=== PATIENT | male | born 1940 | race Two or more races ===

== ENCOUNTER 2017-03-03 10:00 | Emergency (ER) | payer OTHER ==
[2017-03-03 10:05] VITALS: BP 143/84; BMI 24.3
--- NOTE | 2017-03-03 10:29 | DR.GENAD ---
HPI - PCP Primary Care Physician: DAISY - HPI Comment HPI Comment: WORSE TODAY. NO FEVER. - Complaint/Symptoms Chief Complaint Doctors Comments: COUGH, COLD SORE THROAT ONGESTION FOR ONE WEEK. Chief Complaint:: PT C/O C/C/C, HEADACHE, SORE THROAT AND GAS PAIN. PT STATES HE HAS BEEN HAVING THESE SX APPROX 4 DAYS. PT HAS BEEN TAKING OTC MEDS - Nurses notes reviewed Nurses Notes Review: Yes - Source History Provided: Patient - Mode of Arrival Mode of Arrival: Ambulatory - Timing Onset of Chief Complaint: 02/27/17 - Duration Duration: Minutes, Days - Severity Severity: Moderate PMH - PMH Past Medical History: Yes Past Medical History: Diabetes, GERD, Hypertension Past Surgical History: Yes Surgical History: Ortho Surgery - Family History History of Family Medical Conditions: No - Social History Does any household member use tobacco: No Alcohol Use: None Do you use any recreational Drugs:: No Lives With: Family Lives Where: Home - infectious screening In the last 2 months have you had wt loss of >10#?: NO Have you had fever, night sweats or hemotysis?: No Have you traveled outside the country in the last 6 months?: No Isolation: Standard ROS - Review of Systems Constitutional: No Symptoms Reported Eyes: No Symptoms Reported ENTM: Nose Discharge, Nose Congestion, Throat Pain Respiratoy: Short of Breath, Wheezing Cardiovascular: Chest Pain Genitourinary: No Symptoms Reported Neurological: No Symptoms Reported Musculoskeletal: No Symptoms Reported Integumentary: No Symptoms Reported Hematologic/Lymphatic: No Symptoms Reported Endocrine: No Symptoms Reported All Other Systems: Reviewed and Negative PE - Vital Signs Vitals: Temperature 97.2 F Pulse Rate 63 Respiratory Rate 18 Blood Pressure 143/84 O2 Sat by Pulse Oximetry 97 - General Limitations: No Limitations General Appearance: Alert - Head Head Exam: Normal Inspection - Eyes Eye exam: Normal Appearance - ENT ENT Exam: Normal External Ear Exam. negative: Normal Oropharynx External Ear Exam: Normal External Inspection. negative: Mastoid Tenderness, Pain with Movement TM/Canal Exam: Bilateral Erythema Nose Exam: Normal Nose Exam, Sinus Tenderness Mouth Exam: negative: Lip Swelling, Tongue Elevation Throat Exam: Tonsillar Erythema, Tonsillomegaly - Neck Neck Exam: Trachea Midline - Chest Chest Inspection: Normal Inspection - Respiratory Respiratory Exam: Chest Wall Tenderness, Respiratory Distress Respiratory Exam: Upper Rhonchi, Lower Rhonchi MDM - Additional Information Additional Information Obtained From: Family - Differential Diagnosis Differential Diagnosis: BRONCHITIS, PNEUMONIA, STREP THROAT, INFLUENZA Course - Treatment Treatment: SEE ORDERS - Education/Counseling Education/Counseling: Patient, Family Educated On: Treatment, Diagnosis ROR - Labs Reviewed Laboratory Results Reviewed?: Yes Result Diagrams: 03/03/17 10:55 03/03/17 10:55 Laboratory: WBC 5.6 X10^3/uL (3.6-10.0) 03/03/17 10:55 RBC 4.67 X10^6/uL (4.7-6.0) L 03/03/17 10:55 Hgb 13.4 g/dL (13.5-18.0) L 03/03/17 10:55 Hct 39.1 % (42.0-54.0) L 03/03/17 10:55 MCV 83.7 fL (80.0-100.0) 03/03/17 10:55 MCH 28.7 pg (27.0-34.0) 03/03/17 10:55 MCHC 34.3 g/dL (33.0-35.0) 03/03/17 10:55 RDW 13.5 % (11.6-16.5) 03/03/17 10:55 Plt Count 207 X10^3/uL (150.0-450.0) 03/03/17 10:55 MPV 8.1 fL (7.4-11.0) 03/03/17 10:55 Neut % 53.6 % (42.0-75.0) 03/03/17 10:55 Lymph % 31.2 % (21.0-51.0) 03/03/17 10:55 [place] % 9.6 % (0.0-13.0) 03/03/17 10:55 Eos % 5.1 % (0.9-2.9) H 03/03/17 10:55 Baso % 0.5 % (0.2-1.0) 03/03/17 10:55 Neut # 3.0 x10^3/uL (2.2-4.8) 03/03/17 10:55 Lymph # 1.7 X10^3/uL (1.3-2.9) 03/03/17 10:55 [place] # 0.5 x10^3/uL (0.3-0.8) 03/03/17 10:55 Eos # 0.3 x10^3/uL (0.0-0.2) H 03/03/17 10:55 Baso # 0.0 X10^3/uL (0.0-0.1) 03/03/17 10:55 Absolute Nucleated RBC 0.0 /100WBC 03/03/17 10:55 Sodium 142 mmol/L (136-145) 03/03/17 10:55 Corrected Sodium 144 mmol/L (136-145) 03/03/17 10:55 Potassium 3.8 mmol/L (3.5-5.1) 03/03/17 10:55 Chloride 104 mmol/L (98-107) 03/03/17 10:55 Carbon Dioxide 30.0 mmol/L (21-32) 03/03/17 10:55 BUN 13 mg/dL (7-18) 03/03/17 10:55 Creatinine 1.02 mg/dL (0.70-1.30) 03/03/17 10:55 Est GFR (MDRD) Af Amer > 60 (>60) 03/03/17 10:55 Est GFR (MDRD) Non-Af > 60 (>60) 03/03/17 10:55 Glucose 204 mg/dL (65-99) H 03/03/17 10:55 Calcium 9.3 mg/dL (8.5-10.1) 03/03/17 10:55 Corrected Calcium TNP 03/03/17 10:55 Total Bilirubin 0.80 mg/dL (0.2-1.0) 03/03/17 10:55 AST 19 Units/L (15-37) 03/03/17 10:55 ALT 18 Units/L (12-78) 03/03/17 10:55 Alkaline Phosphatase 97 Units/L (46-116) 03/03/17 10:55 Creatine Kinase 59 Units/L (39-308) 03/03/17 10:55 CK-MB (CK-2) < 1.0 ng/mL (0-4.0) 03/03/17 10:55 CK/CKMB % Calc 1.7 % (<4) 03/03/17 10:55 Troponin I < 0.02 ng/mL (0-1.5) 03/03/17 10:55 Total Protein 7.5 g/dL (6.4-8.2) 03/03/17 10:55 Albumin 3.6 g/dL (3.4-5.0) 03/03/17 10:55 Globulin 3.9 g/dL (2.5-4.5) 03/03/17 10:55 Albumin/Globulin Ratio 0.9 Ratio (1.1-2.1) L 03/03/17 10:55 - XRAY XRAY Interpreted by: Radiologist XRAY Findings: REOOPORT DISCUSS WITH PATIENT, - Diagnosis Discharge Problem: Bronchitis, Chest pain, Throat pain - Discharge Plan Disposition: 01 HOME, SELF-CARE Condition: Stable Prescriptions: Azithromycin [ZITHROMAX Tab 250 mg *] 1 dose PO DAILY #6 tab Benzonatate [TESSALON PERLES *] 200 mg PO TID PRN #30 cap PRN Reason: Cough - Follow ups/Referrals Follow ups/Referrals: [facility] [Primary Care Provider] - 3 days - Instructions Instructions: Acute Bronchitis, [id number], Chest Pain Observation Additional Instructions: RETURN TO ED IF WORSE.
[2017-03-03 11:02] LABS: BASOPHILS % (AUTO) 0.5 % (0.2-1.0); EOSINOPHILS # (AUTO) 0.3 x10^3/uL (0.0-0.2); EOSINOPHILS % (AUTO) 5.1 % (0.9-2.9); HEMATOCRIT 39.1 % (42.0-54.0); HEMOGLOBIN 13.4 g/dL (13.5-18.0); LYMPHOCYTES # (AUTO) 1.7 X10^3/uL (1.3-2.9); LYMPHOCYTES % (AUTO) 31.2 % (21.0-51.0); MEAN CORPUSCULAR HEMOGLOBIN 28.7 pg (27.0-34.0); MEAN CORPUSCULAR HGB CONC 34.3 g/dL (33.0-35.0); MEAN CORPUSCULAR VOLUME 83.7 fL (80.0-100.0); MEAN PLATELET VOLUME 8.1 fL (7.4-11.0); MONOCYTES # (AUTO) 0.5 x10^3/uL (0.3-0.8); MONOCYTES % (AUTO) 9.6 % (0.0-13.0); NEUTROPHILS % (AUTO) 53.6 % (42.0-75.0); PLATELET COUNT 207 X10^3/uL (150.0-450.0); RED BLOOD COUNT 4.67 X10^6/uL (4.7-6.0); RED CELL DISTRIBUTION WIDTH 13.5 % (11.6-16.5); WHITE BLOOD COUNT 5.6 X10^3/uL (3.6-10.0)
[2017-03-03 11:24] LABS: BLOOD UREA NITROGEN 13 mg/dL (7-18); CALCIUM 9.3 mg/dL (8.5-10.1); CHLORIDE 104 mmol/L (98-107); COR NA(FOR HYPERGLY) 144 mmol/L (136-145); CREATININE 1.02 mg/dL (0.70-1.30); SODIUM 142 mmol/L (136-145); TROPONIN I < 0.02 ng/mL (0-1.5); eGFR BLACK RACES > 60 (>60); eGFR NON BLACK RACES > 60 (>60)
--- NOTE | 2017-03-03 11:26 | RAD ---
Examination: Chest, PA and lateral views History: Chest pain Findings: Normal heart size with clear lungs and pleural spaces. There is tortuous dilatation of the aorta consistent with age. Impression: No acute disease. Reported By:
[2017-03-03 11:29] LABS: ALANINE AMINOTRANSFERASE 18 Units/L (12-78); ALBUMIN 3.6 g/dL (3.4-5.0); ALKALINE PHOSPHATASE 97 Units/L (46-116); ASPARTATE AMINO TRANSFERASE 19 Units/L (15-37); CKMB % 1.7 % (<4); CREATINE KINASE 59 Units/L (39-308); CREATINE KINASE MB < 1.0 ng/mL (0-4.0); TOTAL PROTEIN 7.5 g/dL (6.4-8.2)
== END 2017-03-03 11:55 | disposition home or self-care (01) ==
LOC: ER 10:12
DX: J40 Bronchitis, not specified as acute or chronic (principal); R07.89 Other chest pain; J02.9 Acute pharyngitis, unspecified
CPT/HCPCS: 36415; 71020; 80053; 82550; 82553; 84484; 85025; 93005; 93010; 99283; 99284